=== PATIENT | male | born 1955 | race African-American/Black ===

== ENCOUNTER 2019-09-10 08:26 | Emergency (ER) | payer MEDICARE, OTHER ==
[~2019-09-10] VITALS: Ht 182.9 cm; Wt 88.0 kg
[2019-09-10] MEDS ORDERED: KETOROLAC 30MG/ML VIAL IV STA (08:39)
[2019-09-10 10:01] LABS: CHLORIDE 111 mEq/L (98-107); HEMOGLOBIN. 10.5 g/dL (14.0-18.0); MEAN CORPUSCULAR HEMOGLOBIN 46.9 pg (28.0-32.0); MEAN CORPUSCULAR VOLUME 134.3 fL (80.0-94.0); MEAN PLATELET VOLUME 11.1 fl (7.4-10.4); RED BLOOD CELL COUNT 2.23 mill/uL (4.7-6.1); RED CELL DISTRIBUTION WIDTH 18.4 % (11.6-14.6)
[2019-09-10 10:28] LABS: CLARITY URINE CLEAR (CLEAR); COLOR URINE DARK YELLOW (YELLOW); KETONES URINE TRACE (NEGATIVE); LEUKOCYTE ESTERASE URINE NEGATIVE (NEGATIVE); NITRITE URINE NEGATIVE (NEGATIVE); OCCULT BLOOD URINE NEGATIVE (NEGATIVE); PH URINE 5.5 (4.5-8.0); PROTEIN URINE NEGATIVE (NEGATIVE); SPECIFIC GRAVITY URINE 1.023 (1.005-1.030)
[2019-09-10 10:39] LABS: INR 1.3; PROTHROMBIN TIME 13.6 sec (9.6-11.0)
[2019-09-10 10:52] LABS: PLATELET ESTIMATE MARKEDLY DECREASED
[2019-09-10 10:54] LABS: PLATELET 30 x1000/uL (130-400)
[2019-09-10] MEDS ORDERED: HYDRALAZINE HCL 50MG TABLET PO ONE (13:00)
[2019-09-10] MEDS ORDERED: HYDRALAZINE HCL 50MG TABLET PO SCH (13:00)
[2019-09-10 13:32] VITALS: BP 159/77
== END 2019-09-10 13:40 | disposition short-term general hospital (02) ==
LOC: ER 08:26
DX: R60.0 Localized edema (principal); D61.818 Other pancytopenia; G40.909 Epilepsy, unspecified, not intractable, without status epilepticus; I10 Essential (primary) hypertension
CPT/HCPCS: 36415; 71045; 80053; 81003; 85025; 85610; 93005; 96374; 99285; J1885